=== PATIENT | female | born 1995 | race Caucasian/White ===

== ENCOUNTER → 2025-07-12 07:55 | Outpatient (BNVA) | payer OTHER, SELFPAY | PROVIDERS: Visit Provider Nurse Practitioner Women's Health | DX: Z30.430 Encounter for insertion of intrauterine contraceptive device (principal); R10.20 Pelvic and perineal pain unspecified side; T83.32XA Displacement of intrauterine contraceptive device, initial encounter | CPT/HCPCS: 76830 ==